=== PATIENT | female | born 1965 | race Caucasian/White ===

== ENCOUNTER → 2017-02-08 | Outpatient (CLI) | payer BC ==
[2017-02-08 10:57] LABS: BASOPHILS # (AUTO) 0.1 T/MM3 (0-0.2); BASOPHILS % (AUTO) 1.1 % (0-2); EOSINOPHILS # (AUTO) 0.1 T/MM3 (0-0.5); EOSINOPHILS % (AUTO) 1.3 % (0-4); HCT - HEMATOCRIT 41.1 % (36-46); LYMPHOCYTES % (AUTO) 22.7 % (23-45); MEAN CORPUSCULAR HGB 29.1 UUG (26-34); MEAN CORPUSCULAR HGB CONC(MCHC 31.6 GM/DL (31-37); MEAN CORPUSCULAR VOLUME 91.9 UM3 (80-100); MEAN PLATELET VOLUME 10.2 UM3 (9.4-12.4); MONOCYTES # (AUTO) 0.4 T/MM3 (0-0.8); MONOCYTES % (AUTO) 8.7 % (0-9.0); NEUTROPHILS % (AUTO) 66.2 % (33-66); RED BLOOD COUNT 4.47 M/MM3 (4.00-5.20); WBC - WHITE BLOOD COUNT 4.5 T/MM3 (4.5-11.0)
[2017-02-08 11:09] LABS: ANION GAP 9 MEQ/L (5-15); BUN/CREATININE RATIO 17 RATIO (6-26); CHLORIDE 106 MEQ/L (98-107); CO2 - CARBON DIOXIDE 30 MEQ/L (22-30); CREATININE 0.7 MG/DL (0.7-1.2); GLOMERULAR FILTRATION RATE 89; GLUCOSE 80 MG/DL (65-110); POTASSIUM 3.9 MEQ/L (3.6-5); SODIUM 145 MEQ/L (134-144)
== END ==
LOC: LAB 10:33
PROVIDERS: ATTEND Orthopaedic Surgery
DX: Z01.812 Encounter for preprocedural laboratory examination (principal)
CPT/HCPCS: 36415; 80048; 85025; 93005

== ENCOUNTER 2017-02-26 07:57 | Day surgery (SDC) | payer BC ==
[~2017-02-26] VITALS: Ht 167.6 cm; Wt 73.1 kg
[2017-02-26] VITALS (13 sets, daily range): BP systolic 111–124; BP diastolic 50–61; PULSE 58–78; RESP 10–19; TEMP 97.1–97.7; O2SAT 95–99; Ht 167.6 cm; Wt 73.1 kg
[2017-02-26] MEDS ORDERED: LR 1,000 ML IV PRN (08:00)
[2017-02-26] MEDS ORDERED: CEFAZOLIN 1 GRAM INJECTION IV ONE (08:00)
[2017-02-26] MEDS ORDERED: LIDOCAINE 1% (10mg/ml) 2ml SDV INJ ONE (08:00)
--- NOTE | 2017-02-26 08:21 | ANESPREOP ---
Anesthesia Record Date and Time DATE: 02/26/17 TIME: 08:19 Proposed Surgical Procedure LT CTR NPO since: mn Allergies: Coded Allergies: No Known Drug Allergies (Verified Allergy, Unknown, 03/04/09) Ht/Wt/BMI Height: ' " Weight: kg BMI: kg/m2 Medications Inpatient Medications Current Medications Medications (Trade) Dose Ordered Sig/Radha Start Time Stop Time Status Last Admin Dose Admin Lactated Ringer's (Lactated Ringers) 1,000 ml @ 50 mls/hr Q20H PRN 02/26/17 08:00 No Active Prescriptions or Reported Meds Currently on Beta Aishwarya: No Medical/Surgical History Smoking Status: Never smoker Use Chewing Tobacco?: No Second Hand Exposure: No Substance Use Type: does not use Alcohol Intake: none HX of Last Menstrual Period: January Past Surgical History Orthopedic Surgeries: Abdominal Surgeries: Yes - APPY Genitourinary Surgeries: Cardiac Surgeries: Endocrine Surgeries: Reproductive Surgeries: Yes - 2 PREVIOUS C-SECTIONS Neurological Surgeries: Ear Surgeries: Nose Surgeries: Throat Surgeries: Other Surgeries: Anesthesia Adverse Reactions: FOUND none Family Hx of Anesthesia Advers: none Hx of Motion Sickness: No Pertinent Findings Test 02/26/17 08:05 Urine Test Negative (NEGATIVE) Physical Exam Respiratory: Bilat breath sounds equal, Lungs clear Cardiovascular: FOUND Regular rate, rhythm Airway Assessment Mallampati Score: I TMD: 3 Fingerbreadths Neck Extension: Good Overall Assessment: No Airway Concerns ASA: 1 Plan GA vs. Axillary block with sedation Anesthesia Plan: TIVA, LMA, GETA Discussion Discussed risks/options/alternatives of anesthesia and questions answered. Patient consents. Nursing pain assessment noted. Attestation Statement Prior to the delivery of any anesthetic medication, I examined the patient, developed the plan, obtained the patient's consent and discussed the risk and benefits of the procedure with the patient/guardian. CARISA BEAUCHAMP CRNA Feb 26, 2017 08:21
[2017-02-26] MEDS ORDERED: MIDAZOLAM 2mg/2ml INJECTION IV ONE (08:45)
[2017-02-26] MEDS ORDERED: MIDAZOLAM 2mg/2ml INJECTION ONE (08:46)
[2017-02-26] MEDS ORDERED: LIDOCAINE 2% (20mg/ml) 5ml PF SDV ONE (08:46)
[2017-02-26] MEDS ORDERED: PROPOFOL 200mg 20 ML IV ONE (08:46)
[2017-02-26] MEDS ORDERED: BUPIVACAINE 0.25% (2.5mg/ml) INJ 30ml SDV ONE (08:59)
[2017-02-26] MEDS ORDERED: FENTANYL 100mcg/2ml INJECTION ONE (09:26)
[2017-02-26] MEDS ORDERED: PROPOFOL 500mg 50 ML IV ONE (09:26)
[2017-02-26] MEDS ORDERED: HYDR-3989 PO (10:04)
[2017-02-26] MEDS ORDERED: MELO7.5T12 PO (10:04)
[2017-02-26] MEDS ORDERED: ONDA4TAB4 PO (10:04)
--- NOTE | 2017-02-26 10:05 | PDPROCED ---
Immediate Operative Note DATE: 02/26/17 TIME: 10:04 Preop Diagnosis: LEFT CTS Postop Diagnosis: left CTS Surgical Procedures: L CTR Surgeon: Brandon Yard Cleaner: ANTHONY Robertson Anesthesia: General Complications: none Estimated Blood Loss see anesthesia TARA SILVA Feb 26, 2017 10:05
[2017-02-26] MEDS ORDERED: HYDROCODONE/APAP 5 mg/325 mg TABLET PO PRN (10:30)
--- NOTE | 2017-02-26 10:38 | ANESPO ---
Post-Op Note Date 02/26/17 Time: 10:37 Status Pt Participated in Evaluation: Pt participated in person Vital Signs Date Time Temp Pulse Resp B/P Pulse Ox O2 Delivery O2 Flow Rate FiO2 02/26/17 10:30 97.7 68 17 112/54 97 Room Air 02/26/17 10:20 2.00 Respiratory Function: Airway patent, Regular respirations Cardiovascular Function: Regular pulse Mental Status: Alert/oriented Pain Level Intensity: 0 Hydration: Taking po fluids Complications during Recovery None apparent Follow-Up Instructions Instructions Per Surgeon CARISA BEAUCHAMP CRNA Feb 26, 2017 10:38
--- NOTE | 2017-02-26 12:03 | OPNOTEF ---
DATE OF OPERATION 02/26/2017 PREOPERATIVE DIAGNOSIS Left carpal tunnel syndrome. POSTOPERATIVE DIAGNOSIS Left carpal tunnel syndrome. PROCEDURE Left carpal tunnel release. SURGEON Trent Taylor [employer] Mandeep Hernandez PA-C ANESTHESIA General by LMA FLUIDS Please refer to Anesthesia chart. EBL Minimal. TOURNIQUET Please refer to Anesthesia chart. COMPLICATIONS None. CONDITION Stable to recovery room. DESCRIPTION OF PROCEDURE Patient was identified in the preoperative holding area. The operative extremity was identified and appropriately marked. Risks, benefits, alternatives and potential complications were discussed and informed consent was obtained. The patient was taken to the operating theatre, placed supine on the operating table. Appropriate cardiorespiratory monitors were applied. General anesthesia was induced. A tourniquet was applied high on the left arm though not yet inflated. Left upper extremity was then sterilely prepped and draped in the usual fashion. Surgical time-out was performed, confirmed with myself, the director recreation and circulating nurse. Preoperative antibiotics were given. The arm had been prepped on an arm board. Surgical landmarks were delineated with a surgical marking pen and the arm was exsanguinated with an Esmarch. The tourniquet was inflated to 250 mmHg. A 2.5 cm longitudinal incision was created just ulnar to the thenar crease. Electrocautery was used for hemostasis as necessary. Blunt dissection was carried through the subcutaneous fat to the palmar fascia. Retractors were placed. The palmar fascia was released longitudinally. The underlying transverse carpal ligament was then released in its central portion with a 15 blade knife under direct visualization until underlying synovium was visualized. Then using the tips of a tenotomy scissors, release was completed distally to the level of palmar arch and then proximally to and through the level of the flexor retinaculum. Inspection of the contents of the carpal tunnel showed an hourglass configuration to the median nerve. No evidence of mass. Flexor tendons were intact. Motor branch was intact. The wound was then copiously irrigated. Blunt palpation with a Douglas elevator and digital palpation with small finger were utilized to confirm adequate release distally and proximally. The wound was then closed with interrupted 4-0 nylon sutures. Marcaine was injected along the incision line. Sterile dressings were applied followed by an Ry bandage. The tourniquet was deflated. The patient was awakened from anesthesia and taken to the recovery room in stable and satisfactory condition. MARYURI
== END 2017-02-26 11:28 | disposition home or self-care (01) ==
LOC: NSC 07:57
PROVIDERS: ATTEND Orthopaedic Surgery
DX: G56.02 Carpal tunnel syndrome, left upper limb (principal)
CPT/HCPCS: 64721; 81025; A6222; J0690; J2250; J2704; J3010; J7120; S0020